=== PATIENT | male | born 1955 | race Caucasian/White ===

== ENCOUNTER → 2016-06-03 | Outpatient (CLI) | payer BC, OTHER ==
[~2016-06-03] MED LIST: ALLOPURINOL 10100 M1; DILTIAZEM 24HR300 M1; GEMFIBROZIL 60600 MG; HYDROCODON-ACE1 EAC7; JANUMET XR 1001 EACH; NEXIUM 40 MG CA40 M1; TOPROL XL50 MG; VIMOVO 500-201 EACH
== END ==
LOC: ULTRA 09:09
DX: I82.432 Acute embolism and thrombosis of left popliteal vein (principal); I82.442 Acute embolism and thrombosis of left tibial vein; K64.5 Perianal venous thrombosis